=== PATIENT | female | born 1995 | race Two or more races ===

== ENCOUNTER → 2020-06-19 | Emergency (ER) | payer OTHER ==
[~2020-06-19] VITALS: Ht 157.5 cm; Wt 52.2 kg
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
[2020-06-19 09:51] VITALS: BP 103/59
--- NOTE | 2020-06-19 10:59 | NUR ---
Patient discharged to home in stable condition. Written and verbal after care instructions given. Patient verbalizes understanding of instruction. The patient alert and oriented. left ER in stable coniditon.
== END | disposition home or self-care (01) ==
LOC: ER 09:42
DX: R53.83 Other fatigue (principal); F10.10 Alcohol abuse, uncomplicated; Y90.9 Presence of alcohol in blood, level not specified